=== PATIENT | male | born 1955 | race African-American/Black ===

== ENCOUNTER 2021-08-21 10:04 | Observation (INO) ==
[~2021-08-21 10:04] MED LIST: cefTRIAXone 1,000 MG in SODIUM CHLORIDE 0.9% 100 ML IV ONE
[2021-08-21] MEDS: LACTATED RINGERS 1,000 ML IV SCH (11:50)
[2021-08-21] MEDS ORDERED: cefTRIAXone 1,000 MG VIAL ONE (11:51)
[2021-08-21] MEDS ORDERED: LIDOCAINE 2% 5 ML VIAL ONE (13:52)
[2021-08-21] MEDS ORDERED: fentaNYL 100 MCG/2 ML VIAL ONE ×2 (13:52→15:21)
[2021-08-21] MEDS ORDERED: DEXAMETHASONE 4 MG/1 ML VIAL ONE ×2 (13:52→14:43)
[2021-08-21] MEDS ORDERED: propofoL 200 MG/20 ML VIAL IV ONE ×2 (13:52→14:43)
[2021-08-21] MEDS ORDERED: ONDANSETRON 4 MG/2 ML VIAL ONE (13:52)
[2021-08-21] MEDS ORDERED: MIDAZOLAM 2 MG/2 ML VIAL ONE (13:52)
[2021-08-21] MEDS ORDERED: SEVOFLURANE 1 UNIT/15 MINUTE INH ONE ×5 (13:59→16:03)
[2021-08-21] MEDS ORDERED: ACETAMINOPHEN INJ 1,000 MG/100 ML VIAL IV ONE (14:00)
[2021-08-21] MEDS ORDERED: ePHEDrine 50 MG/ML VIAL ONE (14:36)
[2021-08-21] MEDS ORDERED: LACTATED RINGERS 1,000 ML IV ONE (15:22)
[2021-08-21] MEDS ORDERED: HYDROmorphone 1 MG/1 ML SYRINGE IV PRN (16:15)
[2021-08-21] MEDS ORDERED: oxyCODONE/ACETAMINOPHEN 5-325 MG TABLET PO PRN (16:15)
[2021-08-21] MEDS ORDERED: diphenhydrAMINE 50 MG/1 ML VIAL IV PRN (16:15)
[2021-08-21] MEDS ORDERED: PROMETHAZINE 25 MG/1 ML VIAL IM PRN (16:15)
[2021-08-21] MEDS ORDERED: ONDANSETRON 4 MG/2 ML VIAL IV PRN (16:15)
[2021-08-21] MEDS ORDERED: LACTULOSE 20 GM/30 ML UDCUP PO PRN (16:15)
[2021-08-21] MEDS ORDERED: MAGNESIUM HYDROXIDE SUSP 30 ML UDCUP PO PRN (16:15)
[2021-08-21] MEDS ORDERED: hydrALAZINE 25 MG TABLET PO PRN (16:18)
[2021-08-21 16:46] LABS: Basophils # 0.1 10*3/uL (0.0-0.2); Basophils % 0.7 % (0.0-0.8); Eosinophils # 0.1 10*3/uL (0.0-0.87); Eosinophils % 0.7 % (0.00-10.9); Hematocrit 39.3 VOL% (42.0-52.0); Hemoglobin 13.3 GM/DL (14.0-18.0); Immature Granulocytes % 0.7 %; Immature Granulocytes Absolute 0.06 #; Lymphocytes # 1.7 10*3/uL (1.4-4.0); Lymphocytes % 19.1 % (21.2-54.2); Mean Corpuscular HGB Conc 33.8 GM/DL (32-36); Mean Corpuscular Volume 92.7 FL (87-102); Mean Platelet Volume 10.9 FL (9.6-12.0); Monocytes # 0.4 10*3/uL (0.11-0.8); Monocytes % 4.5 % (1.7-12.7); Neutrophils % 74.3 % (38.7-73.9); Platelet Count 201 T/CUMM (130-400); Red Blood Count 4.24 MC/CUMM (3.8-5.5); Red Cell Distribution Width 14.3 % (9.3-17.3); White Blood Count 8.8 T/CUMM (4-12)
[2021-08-21 17:07] LABS: Calcium 8.5 MG/DL (8.5-10.1); Osmolality,Calculated 275.2 MOS/KG (273-304)
[2021-08-21] MEDS ORDERED: MAGNESIUM SULF RIDER 4 GM/100 ML PREMIX IV PRN (17:45)
[2021-08-21] MEDS ORDERED: MAGNESIUM SULF RIDER 2 GM/50 ML PREMIX IV PRN (17:45)
[2021-08-21] MEDS: SODIUM CHLORIDE 0.9% 1,000 ML IV SCH (17:55)
[2021-08-21] MEDS: ACETAMINOPHEN 325 MG TABLET PO SCH ×2 (17:55→21:53)
[2021-08-21] MEDS: OXYBUTYNIN 5 MG TABLET PO SCH (21:54)
[2021-08-21] MEDS: DOCUSATE SODIUM 100 MG CAPSULE PO SCH (21:54)
[2021-08-22] MEDS: ACETAMINOPHEN 325 MG TABLET PO SCH ×4 (04:11→21:40)
[2021-08-22 06:17] LABS: Basophils % 0.2 % (0.0-0.8); Eosinophils % 0.1 % (0.00-10.9); Hematocrit 38.1 VOL% (42.0-52.0); Hemoglobin 12.8 GM/DL (14.0-18.0); Immature Granulocytes % 0.5 %; Immature Granulocytes Absolute 0.05 #; Lymphocytes # 1.5 10*3/uL (1.4-4.0); Lymphocytes % 15.6 % (21.2-54.2); Mean Corpuscular HGB Conc 33.6 GM/DL (32-36); Mean Corpuscular Volume 92.9 FL (87-102); Mean Platelet Volume 11.2 FL (9.6-12.0); Monocytes # 0.7 10*3/uL (0.11-0.8); Monocytes % 7.4 % (1.7-12.7); Neutrophils % 76.2 % (38.7-73.9); Platelet Count 199 T/CUMM (130-400); Red Cell Distribution Width 14.3 % (9.3-17.3); White Blood Count 9.7 T/CUMM (4-12)
[2021-08-22 06:31] LABS: Calcium 8.4 MG/DL (8.5-10.1); Osmolality,Calculated 278.1 MOS/KG (273-304); Potassium 3.8 MMOL/L (3.5-5.1)
[2021-08-22] MEDS: DOCUSATE SODIUM 100 MG CAPSULE PO SCH ×2 (09:11→20:46)
[2021-08-22] MEDS: DUTASTERIDE 0.5 MG CAPSULE PO SCH (09:11)
[2021-08-22] MEDS: OXYBUTYNIN 5 MG TABLET PO SCH ×3 (09:11→20:46)
[2021-08-22] MEDS: SODIUM CHLORIDE 0.9% 1,000 ML IV SCH ×2 (09:20→20:47)
[2021-08-22] MEDS: cefTRIAXone 1,000 MG in SODIUM CHLORIDE 0.9% 100 ML IV SCH (16:42)
[2021-08-22] MEDS: LACTATED RINGERS 1,000 ML IV SCH (20:37)
[2021-08-23] MEDS: ACETAMINOPHEN 325 MG TABLET PO SCH ×4 (03:41→22:19)
[2021-08-23 05:31] LABS: Basophils # 0.1 10*3/uL (0.0-0.2); Basophils % 0.7 % (0.0-0.8); Eosinophils # 0.1 10*3/uL (0.0-0.87); Eosinophils % 1.3 % (0.00-10.9); Hematocrit 36.5 VOL% (42.0-52.0); Hemoglobin 12.1 GM/DL (14.0-18.0); Immature Granulocytes % 0.4 %; Immature Granulocytes Absolute 0.03 #; Lymphocytes # 2.5 10*3/uL (1.4-4.0); Lymphocytes % 34.6 % (21.2-54.2); Mean Corpuscular HGB Conc 33.2 GM/DL (32-36); Mean Corpuscular Volume 93.8 FL (87-102); Mean Platelet Volume 10.9 FL (9.6-12.0); Monocytes # 0.7 10*3/uL (0.11-0.8); Monocytes % 10.1 % (1.7-12.7); Neutrophils % 52.9 % (38.7-73.9); Platelet Count 172 T/CUMM (130-400); Red Blood Count 3.89 MC/CUMM (3.8-5.5); Red Cell Distribution Width 14.1 % (9.3-17.3); White Blood Count 7.1 T/CUMM (4-12)
[2021-08-23 05:48] LABS: Osmolality,Calculated 280.1 MOS/KG (273-304); Potassium 3.9 MMOL/L (3.5-5.1)
[2021-08-23] MEDS: DUTASTERIDE 0.5 MG CAPSULE PO SCH (08:50)
[2021-08-23] MEDS: DOCUSATE SODIUM 100 MG CAPSULE PO SCH ×2 (08:51→22:09)
[2021-08-23] MEDS: OXYBUTYNIN 5 MG TABLET PO SCH ×3 (08:51→22:09)
[2021-08-23] MEDS: SODIUM CHLORIDE 0.9% 1,000 ML IV SCH (08:52)
[2021-08-23] MEDS: LACTATED RINGERS 1,000 ML IV SCH (10:41)
[2021-08-23] MEDS: cefTRIAXone 1,000 MG in SODIUM CHLORIDE 0.9% 100 ML IV SCH (15:36)
[2021-08-24] MEDS: ACETAMINOPHEN 325 MG TABLET PO SCH ×3 (04:32→18:59)
[2021-08-24] MEDS: SODIUM CHLORIDE 0.9% 1,000 ML IV SCH ×2 (04:33→13:32)
[2021-08-24 05:46] LABS: Basophils # 0.1 10*3/uL (0.0-0.2); Basophils % 1.1 % (0.0-0.8); Eosinophils # 0.2 10*3/uL (0.0-0.87); Eosinophils % 2.5 % (0.00-10.9); Hematocrit 36.5 VOL% (42.0-52.0); Hemoglobin 12.1 GM/DL (14.0-18.0); Immature Granulocytes % 0.7 %; Immature Granulocytes Absolute 0.05 #; Lymphocytes # 2.6 10*3/uL (1.4-4.0); Lymphocytes % 36.2 % (21.2-54.2); Mean Corpuscular HGB Conc 33.2 GM/DL (32-36); Mean Corpuscular Volume 94.1 FL (87-102); Mean Platelet Volume 11.3 FL (9.6-12.0); Monocytes # 0.8 10*3/uL (0.11-0.8); Monocytes % 10.5 % (1.7-12.7); Platelet Count 166 T/CUMM (130-400); Red Blood Count 3.88 MC/CUMM (3.8-5.5); Red Cell Distribution Width 14.2 % (9.3-17.3); White Blood Count 7.3 T/CUMM (4-12)
[2021-08-24 06:01] LABS: Calcium 8.2 MG/DL (8.5-10.1); Potassium 3.5 MMOL/L (3.5-5.1)
[2021-08-24] MEDS: DUTASTERIDE 0.5 MG CAPSULE PO SCH (09:17)
[2021-08-24] MEDS: OXYBUTYNIN 5 MG TABLET PO SCH ×2 (09:17→16:22)
[2021-08-24] MEDS: DOCUSATE SODIUM 100 MG CAPSULE PO SCH (09:17)
[2021-08-24] MEDS: LACTATED RINGERS 1,000 ML IV SCH (13:31)
[2021-08-24] MEDS: cefTRIAXone 1,000 MG in SODIUM CHLORIDE 0.9% 100 ML IV SCH (16:21)
[2021-08-24 21:18] VITALS: BP 147/79
== END 2021-08-24 20:59 | disposition home or self-care (01) ==
LOC: N.3E 10:04 → N.OR 10:04 → N.SDSINP 10:08 → N.3E 17:12
PROVIDERS: ADMIT Surgery; ATTEND Surgery